=== PATIENT | male | born 2005 | race Caucasian/White ===

== ENCOUNTER 2024-01-25 15:44 | Emergency (ER) | payer OTHER, SELFPAY ==
[2024-01-25 15:45] VITALS: BP 134/89; PULSE 99; RESP 16; TEMP 36.4; O2SAT 98; BMI 24.5
[2024-01-25] MEDS: Lidocaine 1% (20 ml mdv) 20 ML Vial INFILT (17:09)
[2024-01-25] MEDS: Cephalexin 500 MG Capsule PO (17:10)
== END 2024-01-25 17:27 | disposition home or self-care (01) ==
PROVIDERS: Emergency Provider Emergency Medicine; PCP Pediatrics; Visit Provider Emergency Medicine
DX: L02.01 Cutaneous abscess of face (principal)
CPT/HCPCS: 10060; 99282